=== PATIENT | female | born 1960 | race Caucasian/White ===

== ENCOUNTER → 2018-10-16 | Outpatient (CLI) | payer BC, OTHER ==
--- NOTE | 2018-10-16 18:09 | CT ---
EXAM DESCRIPTION: Head CLINICAL HISTORY: R51 COMPARISON: None available TECHNIQUE: Noncontrast head CT was performed with routine protocol. FINDINGS: Normal schuster-white matter differentiation. Ventricles and sulci are normal for age. No high density hemorrhage, focal edema or shift of the midline. No sulcal effacement. Normal orbital contents. Basilar cisterns appear clear. Intact calvarium with no fracture. Small lucent lesions in the left parietal bone are noted, indeterminate. Normal aeration of tympanic cavities and mastoid air cells. No fluid levels in the paranasal sinuses. Skull base appears intact. Symmetrical internal auditory canals. IMPRESSION: No acute intracranial pathologic process. See above. This exam was performed according to our departmental dose-optimization program, which includes automated exposure control, adjustment of the mA and/or kV according to patient size and/or use of iterative reconstruction technique. Total DLP equals 859.97 mGycm. Electronically signed by: Alon Mcintosh MD 10/16/2018 6:05 PM CDT
== END ==
LOC: CT 15:21
PROVIDERS: ATTEND General Practice
DX: R51 Headache (principal)